=== PATIENT | female | born 1950 | race Caucasian/White ===

== ENCOUNTER 2019-02-16 06:53 | Day surgery (SDC) | payer OTHER ==
[~2019-02-16 06:53] MED LIST: Acetaminophen TAB* 325 MG PO PRN; Buffered Lidocaine 1% SYRIN* 1 ML/SYRINGE INTRADERM ONE
[2019-02-16] MEDS ORDERED: Midazolam* 1 MG/ML 2 ML VIAL (2 MG) ONE (08:00)
--- NOTE | 2019-02-16 09:21 | OP ---
OPERATIVE NOTE: DATE OF OPERATION: 02/16/19 DATE OF : 48 SURGEON: Juanjo Burton MD. PREOPERATIVE DIAGNOSIS: Cataract, right eye. POSTOPERATIVE DIAGNOSIS: Cataract, right eye. OPERATIVE PROCEDURE: Extracapsular cataract extraction with intraocular lens implant, right eye. PROCEDURE: The patient was brought to the operating room after being given 1/2% Alcaine with epineph rine drops in the preoperative area. The eye was prepped and draped in the usual sterile fashion. S terile drape and eyelid speculum were placed. Again, topical 1/2% Alcaine with epinephrine was given . A paracentesis incision was made at the 9 o'clock position with the No.75 blade. Clear cornea inc ision 2.2 x 2.2-mm was created at the 12 o'clock position starting at the anterior limbus using the 2 .2-mm keratome. The anterior chamber was irrigated with 0.4 mL of 1% non-preservative intracameral l idocaine and filled with DisCoVisc. A capsulorrhexis was completed using the cystotome and the Utrat a forceps. Hydrodissection was performed with balanced salt solution. The lens nucleus was removed w ith the Phacoemulsification handpiece without incident. Cortex was removed with the irrigation-aspir ation handpiece. The capsular bag was re-inflated using DisCoVisc and an SN60WF 23.5 implant was ins erted with the shooter. The irrigation-aspiration handpiece was used to remove all residual DisCoVis c. The eye was refilled with balanced salt solution and the wound checked and found to be watertight . Topical Maxitrol drops were given. All measurements were confirmed using ORA technology. Of note, there was a small tear at the haptic- optic junction on the leading haptic. By the time I saw that, the lens had already been inserted and I thought that it was a small enough tear that did not affect the function of the lens at all that I just elected not to do an implant exchange lens. [id number]/[facility] #: [id number]
[2019-02-16 09:23] VITALS: BP 130/51
[2019-02-16] MEDS ORDERED: Proparacaine 0.5% OPHTH.SOL* 15 ML BTL ONE (10:45)
[2019-02-16] MEDS ORDERED: Phenylephrine OPHTH SOL 2.5%* 2 ML ONE (10:45)
[2019-02-16] MEDS ORDERED: Neomycin/Polymy/Dex OPTH.SUSP* MAXITROL 0.1% 5 ML ONE (10:45)
[2019-02-16] MEDS ORDERED: acetaZOLAMIDE TAB* 250 MG ONE (10:45)
[2019-02-16] MEDS ORDERED: Lidocaine 2% EPI 1:200000 MPF*10-20 ML VIAL ONE (10:45)
[2019-02-16] MEDS ORDERED: Povidone Iodine 5% OPTH* 30 ML BTL ONE (10:45)
[2019-02-16] MEDS ORDERED: Cyclopentolate 1% OPTH.SOL* 2 ML BTL ONE (10:45)
[2019-02-16] MEDS ORDERED: Lidocaine 1%** 5 ML VIAL ONE (10:45)
[2019-02-16] MEDS ORDERED: Ketorolac 0.5% OPHTH (NF) 0.5 % 5 ML BTL ONE (10:45)
== END 2019-02-16 09:15 | disposition home or self-care (01) ==
LOC: OREAST 06:53
PROVIDERS: ATTEND Specialist
DX: H25.11 Age-related nuclear cataract, right eye (principal); D31.32 Benign neoplasm of left choroid; Z87.891 Personal history of nicotine dependence
CPT/HCPCS: A9270-GY; J2250; V2632

== ENCOUNTER 2019-02-23 06:30 | Day surgery (SDC) | payer OTHER ==
[2019-02-23] MEDS ORDERED: Lidocaine 1%** 5 ML VIAL ONE (07:48)
[2019-02-23] MEDS ORDERED: Proparacaine 0.5% OPHTH.SOL* 15 ML BTL ONE (07:48)
[2019-02-23] MEDS ORDERED: acetaZOLAMIDE TAB* 250 MG ONE (07:48)
[2019-02-23] MEDS ORDERED: Cyclopentolate 1% OPTH.SOL* 2 ML BTL ONE (07:48)
[2019-02-23] MEDS ORDERED: Lidocaine 2% EPI 1:200000 MPF*10-20 ML VIAL ONE (07:48)
[2019-02-23] MEDS ORDERED: Povidone Iodine 5% OPTH* 30 ML BTL ONE (07:48)
[2019-02-23] MEDS ORDERED: Neomycin/Polymy/Dex OPTH.SUSP* MAXITROL 0.1% 5 ML ONE (07:48)
[2019-02-23] MEDS ORDERED: Ketorolac 0.5% OPHTH (NF) 0.5 % 5 ML BTL ONE (07:48)
[2019-02-23] MEDS ORDERED: Phenylephrine OPHTH SOL 2.5%* 2 ML ONE (07:48)
[2019-02-23] MEDS ORDERED: Midazolam* 1 MG/ML 2 ML VIAL (2 MG) ONE (08:17)
--- NOTE | 2019-02-23 09:02 | OP ---
OPERATIVE NOTE: DATE OF OPERATION: 02/23/19 - [facility] DATE OF : 48 SURGEON: Juanjo Burton MD. PREOPERATIVE DIAGNOSIS: Cataract, left eye. POSTOPERATIVE DIAGNOSIS: Cataract, left eye. OPERATIVE PROCEDURE: Extracapsular cataract extraction with intraocular lens implant, left eye. PROCEDURE: The patient was brought to the operating room after being given 1/2 % Alcaine with epinephrine drops in the preoperative area. The eye was prepped and draped in the usual sterile fashion. Sterile drape and eyelid speculum were placed. Again, topical 1/2% Alcaine with epinephrine was given. A paracentesis incision was made at the 3 o'clock position with the No.75 blade. Clear cornea incision 2.2 x 2.2-mm was created at the 6 o'clock position starting at the anterior limbus using the 2.2-mm keratome. The anterior chamber was irrigated with 0.4 mL of 1% non-preservative intracameral lidocaine and filled with DisCoVisc. A capsulorrhexis was completed using the cystotome and the Utrata forceps. Hydrodissection was performed with balanced salt solution. The lens nucleus was removed with the Phacoemulsification handpiece without incident. Cortex was removed with the irrigation-aspiration handpiece. The capsular bag was re-inflated using DisCoVisc and an SN60WF 23.5 implant was inserted with the shooter. All measurements confirmed with ORA. The irrigation-aspiration handpiece was used to remove all residual DisCoVisc. The eye was refilled with balanced salt solution and the wound checked and found to be watertight. Topical Maxitrol drops were given. [id number]/[facility] #: [id number] [facility]
[2019-02-23 09:30] VITALS: BP 116/60
== END 2019-02-23 08:56 | disposition home or self-care (01) ==
LOC: OREAST 06:30
PROVIDERS: ATTEND Specialist
DX: Z01.818 Encounter for other preprocedural examination (principal); H25.13 Age-related nuclear cataract, bilateral; D31.32 Benign neoplasm of left choroid; Z87.891 Personal history of nicotine dependence; E07.9 Disorder of thyroid, unspecified; E78.5 Hyperlipidemia, unspecified; Z96.1 Presence of intraocular lens
CPT/HCPCS: A9270-GY; J2250; V2632